=== PATIENT | female | born 1955 | race Two or more races ===

== ENCOUNTER 2023-05-23 09:41 | Outpatient (CLI) | payer OTHER | END 2023-05-23 09:48 | disposition home or self-care (01) | LOC: SONOGRAMA 09:41 | PROVIDERS: ATTEND Pathology Anatomic Pathology & Clinical Pathology | DX: D37.030 Neoplasm of uncertain behavior of the parotid salivary glands (principal); K11.6 Mucocele of salivary gland; E21.4 Other specified disorders of parathyroid gland ==